=== PATIENT | male | born 1955 | race American Indian/Alaskan Native ===

== ENCOUNTER 2021-04-29 06:02 | Observation (INO) | payer MEDICARE ==
--- NOTE | 2021-04-24 11:38 | Anesthesia Consultation ---
Anesthesia Consult and Med Hx Date of service: 04/29/21 - Airway Anesthetic Teeth Evaluation: Dentures (upper), Partials (lower) ROM Head & Neck: Adequate Mental/Hyoid Distance: Adequate Mallampati Class: Class I Intubation Access Assessment: Good - Pulmonary Exam CTA: Yes - Cardiac Exam Cardiac Exam: RRR - Pre-Operative Health Status ASA Pre-Surgery Classification: ASA2 Proposed Anesthetic Plan: General Nerve Block: TAP - Pulmonary Hx Smoking: No Hx Respiratory Symptoms: No Hx Sleep Apnea: No (SAMUEL PRE SCREEN HIGH RISK) - Cardiovascular System Hx Hypertension: Yes Hx Heart Attack/AMI: No Hx Percutaneous Transluminal Coronary Angioplasty (PTCA): No - Central Nervous System CVA: No Hx Back Pain: Yes - Endocrine Hx Renal Disease: No Hx Liver Disease: No Hx Insulin Dependent Diabetes: No Hx Non-Insulin Dependent Diabetes: No Hx Thyroid Disease: No - Other Systems Hx Cancer: Yes (prostate ca) - Additional Comments Anesthesia Medical History Comments: No prior GA. No FHx anesthetic complications.
[2021-04-24 11:41] LABS: Mean Corpuscular HGB Conc 36 % (32-34); Mean Corpuscular Volume 85 fl (84-94); Platelet Count 189 K/mm3 (140-440); Red Blood Count 4.76 M/mm3 (3.65-5.03)
[2021-04-24 11:42] LABS: Alanine Aminotransferase 12 units/L (7-56); Albumin 4.1 g/dL (3.9-5); BUN/Creatinine Ratio 8; Blood Urea Nitrogen 10 mg/dL (9-20); Calcium 8.7 mg/dL (8.4-10.2); Hematocrit 40.5 % (35.5-45.6); Hemoglobin 14.7 gm/dl (11.8-15.2); Hemolysis Index 3
[~2021-04-29 06:02] MED LIST: ACETAMINOPHEN 500 MG TAB PO SCH; CELECOXIB 200 MG CAP PO NR; GABAPENTIN 300 MG CAP PO NR; LACTATED RINGERS 1,000 ML IV SCH; MIDAZOLAM 2 MG/2 ML INJ IV NR; fentaNYL 100 MCG/2 ML INJ IV PRN
[2021-04-29] MEDS ORDERED: BACTERIOSTATIC SODIUM CHLORIDE 0.9% 30 ML VIAL INFILTRATI ONE (06:43)
[2021-04-29] MEDS ORDERED: ceFAZolin/Water 2 GM/20 ML 2 GM/20 ML SYRINGE IV ONE (07:03)
[2021-04-29] MEDS ORDERED: CITRIC ACID-SOD CITRATE 500 ML IV ONE (07:20)
[2021-04-29] MEDS ORDERED: CALCIUM CHLORIDE 1,000 MG/10 ML SYRINGE IV ONE ×2 (07:20→08:47)
[2021-04-29] MEDS ORDERED: BUPIVACAINE/PF (0.5%) 5 MG/1 ML 30 ML VIAL INFILTRATI ONE (07:20)
[2021-04-29] MEDS ORDERED: THROMBIN (RECOMBINANT) 5,000 UNIT VIAL TP ONE ×2 (07:21→08:47)
[2021-04-29] MEDS ORDERED: METHYLENE BLUE 50 MG/10 ML AMP ONE (07:21)
[2021-04-29] MEDS ORDERED: ONDANSETRON 4 MG/2 ML INJ IV PRN (07:35)
[2021-04-29] MEDS ORDERED: HYDROmorphone 1 MG/1 ML INJ IV PRN ×2 (07:35)
--- NOTE | 2021-04-29 07:35 | Anesthesia Day of Surgery ---
Anesthesia Day of Surgery - Day of Surgery Patient Examined: Yes Patient H&P Reviewed: Yes Patient is NPO: Yes
[2021-04-29] MEDS ORDERED: dexAMETHasone 4 MG/ML VIAL ONE (07:37)
[2021-04-29] MEDS ORDERED: BUPIVACAINE-EPINEPHRINE/PF 0.25%-1:200,000 (30 ML) VIAL INFILTRATI ONE (07:37)
[2021-04-29] MEDS ORDERED: BUPIVACAINE/PF (0.25%) 2.5 MG/ML 30 ML VIAL INFILTRATI ONE (07:37)
[2021-04-29] MEDS ORDERED: dexAMETHasone 20 MG/5 ML VIAL ONE (07:45)
[2021-04-29] MEDS ORDERED: ROCURONIUM 50 MG/5 ML INJ IV ONE ×2 (07:45→09:48)
[2021-04-29] MEDS ORDERED: LIDOCAINE MPF (2%) 20 MG/1 ML VIAL 5 ML ONE (07:45)
[2021-04-29] MEDS ORDERED: propofoL 200 MG/20 ML VIAL IV ONE (07:46)
[2021-04-29] MEDS ORDERED: fentaNYL 100 MCG/2 ML INJ ONE (07:46)
[2021-04-29] MEDS ORDERED: ceFAZolin/Water 2 GM/20 ML 2 GM/20 ML SYRINGE IV NR (08:00)
[2021-04-29] MEDS ORDERED: CITRIC ACID-SOD CITRATE SOLN 500 ML IV SOLN IV ONE (08:47)
[2021-04-29] MEDS ORDERED: SODIUM CHLORIDE 0.9% IRRIG SOLN 2000 ML IR ONE (08:47)
[2021-04-29] MEDS ORDERED: WATER FOR IRRIG STERILE 1,500 ML BOTTLE IR ONE (08:47)
[2021-04-29] MEDS ORDERED: HYDROmorphone 1 MG/1 ML INJ ONE (08:50)
[2021-04-29] MEDS ORDERED: NEOSTIGMINE 10MG/10 ML INJ MDV ONE (10:56)
[2021-04-29] MEDS ORDERED: GLYCOPYRROLATE 0.4 MG/2 ML INJ ONE (10:56)
--- NOTE | 2021-04-29 10:58 | Short Stay Summary ---
Short Stay Documentation Date of service: 04/29/21 - History H&P: obtained from office - Allergies and Medications Current Medications: Allergies No Known Allergies Allergy (Verified 04/19/21 16:46) Home Medications Medication Instructions Recorded Confirmed Last Taken Type Cetirizine HCl 1 tab PO DAILY 04/19/21 04/19/21 04/28/21 History Lisinopril/Hydrochlorothiazide 10 mg PO DAILY 04/19/21 04/19/21 04/28/21 History Sildenafil 1 tab PO PRN PRN 04/19/21 04/29/21 04/26/21 History Active Medications Acetaminophen (Acetaminophen 500 Mg Tab) 1,000 mg PO PREOP ALEXIS Stop: 04/29/21 20:00 Celecoxib (Celecoxib 200 Mg Cap) 200 mg PO PREOP NR Stop: 04/29/21 20:00 Fentanyl (Fentanyl 100 Mcg/2 Ml Inj) 100 mcg IV ONCE PRN PRN Reason: sedation for nerve block Stop: 04/29/21 20:00 Last Admin: 04/29/21 07:43 Dose: 100 mcg Gabapentin (Gabapentin 300 Mg Cap) 300 mg PO PREOP NR Stop: 04/29/21 20:00 Hydromorphone HCl (Hydromorphone 1 Mg/1 Ml Inj) 0.25 mg IV Q10MIN PRN PRN Reason: Pain, Moderate (4-6) Stop: 04/29/21 20:00 Hydromorphone HCl (Hydromorphone 1 Mg/1 Ml Inj) 0.5 mg IV Q10MIN PRN PRN Reason: Pain , Severe (7-10) Stop: 04/29/21 20:00 Lactated Ringer's (Lactated Ringers) 1,000 mls @ 100 mls/hr IV DIRECT ALEXIS Stop: 04/29/21 23:59 Last Admin: 04/29/21 07:30 Dose: 100 mls/hr Midazolam HCl (Midazolam 2 Mg/2 Ml Inj) 2 mg IV PREOP NR Stop: 04/29/21 20:00 Last Admin: 04/29/21 07:43 Dose: 2 mg - Brief post op/procedure progress note Date of procedure: 04/29/21 Pre-op diagnosis: prostate cancer Post-op diagnosis: same Procedure: robotic prostatectomy, stem cell implant Anesthesia: GETA Surgeon: JENNIE ARGUETA Estimated blood loss: other (200c) Specimen disposition: to lab Condition: stable - Hospital course Hospital course: pt has bactrim & norco post op info on chart looks good in bed [facility] removed home with raymond - Disposition Condition at discharge: Stable Short Stay Discharge Plan Follow up with: MINERVA LANDA MD [Primary Care Provider] - 7 Days
[2021-04-29] MEDS ORDERED: ZOLPIDEM 5 MG TAB PO PRN (11:03)
[2021-04-29] MEDS ORDERED: MORPHINE 4 MG/1 ML INJ IV PRN (11:03)
[2021-04-29] MEDS ORDERED: ACETAMINOPHEN 325 MG TAB PO PRN (11:03)
[2021-04-29] MEDS ORDERED: NALOXONE 0.4 MG/1 ML INJ IV PRN (11:03)
[2021-04-29] MEDS ORDERED: diphenhydrAMINE 25 MG CAP PO PRN (11:03)
[2021-04-29] MEDS ORDERED: LACTATED RINGERS 1,000 ML IV SCH (11:15)
[2021-04-29] MEDS ORDERED: LACTATED RINGERS 1,000 ML ONE (11:41)
--- NOTE | 2021-04-29 12:00 | Operative Report ---
DATE OF SURGERY: 04/29/2021 PREOPERATIVE DIAGNOSIS: Prostate cancer. POSTOPERATIVE DIAGNOSIS: Prostate cancer. PROCEDURES: Robotic-assisted laparoscopic prostatectomy, bladder neck suspension, stem cell implant. SURGEON: Jose Miguel Roth MD ANESTHESIA: General. ESTIMATED BLOOD LOSS: Minimal. FLUIDS: Crystalloid. COMPLICATIONS: No complications. DIRECTOR OF OPERATIONS HOME HEALTH: Alberta Dumont. DRAINS: Awais-Wilson drain x 1. INDICATIONS: This patient is a 66-year-old gentleman seen in the office for an elevated PSA of 5. He underwent transrectal ultrasound and biopsy of prostate, was found to have adenocarcinoma of the prostate. Bone scan, CT scan was unremarkable except for BPH and degenerative changes. Discussed options including stem cells. He agreed to proceed with surgical intervention. Risks, benefits, complications were explained. DESCRIPTION OF PROCEDURE: The patient was taken to the operative suite, placed in a supine position. After adequate general anesthesia, he was then placed in a modified dorsal lithotomy position, prepped and draped in a sterile fashion. Lopes catheter was placed on the operative field. A 1 cm supraumbilical incision was made. Towel clips were placed. Veress needle was inserted. A drop test was negative. Opening pressure was 1 cm of water. Insufflation of the abdomen to 15 cm of water was performed without difficulty. The patient had a narrow pelvis. A 15 cm cephalad to pubic symphysis was marked, 9 cm lateral and additional 9 cm lateral was marked to allow placement of robotic ports. A 10 mm helper port and a 5 mm helper port was placed on the right side. A 0-degree lens was placed in the supraumbilical incision without difficulty. The rest of the ports were placed under direct vision. No signs of metastasis or intra-abdominal injury could be appreciated. The patient was placed in exaggerated dorsal lithotomy position. Robotic cart was docked between the legs. I went to the console. Attention was taken to the posterior aspect of the bladder and prostate. Second arch was scored exposing the seminal vesicles and vas deferens, they were dissected out. Vas deferens was transected bilaterally. Dissection was taken to the apex of the prostate. Next, attention was taken to the anterior abdominal wall laterally. Lateral umbilical ligament was scored and then across the midline to allow the bladder to drop. Dorsal vein complex was controlled with a 60 mm vascular stapler. The endopelvic fascia was opened bilaterally, dissected to the bladder neck. Part of the neurovascular bundle could be appreciated bilaterally and attempts to spare structures were performed; however, with tedious bleeding, a 60 mm stapler was placed to control bleeding on the lateral pedicles. The bladder neck was scored exposing the Lopes. It was deflated and retractor was used for anterior traction. Posterior bladder neck was dissected free exposing the seminal vesicles and vas deferens. They were pulled anteriorly. As I mentioned earlier, the 60 mm vascular stapler had to be used for control of the pedicles. Copious irrigation was performed. Adequate hemostasis was achieved. Dissection to the apex of the prostate was performed. Distal urethra was transected and the prostate was placed in the EndoCatch bag. The bladder neck was reconstructed at the 7 o'clock and 5 o'clock positions using 2-0 Vicryl in interrupted fashion to accommodate an 18-Belgian Lopes catheter. Double-armed V-Loc stitch was placed at the 6 o'clock position. The bladder neck corresponding aspect of the urethra running stitch was placed. Prior to that, a 2 x 2 cm stem cell graft was placed over the rectum and in the area of the neurovascular bundle. The stem cells were incorporated into the anastomotic stitch at the urethra. Lopes catheter was placed. A new 18-Belgian Lopes catheter was placed. The V-Loc stitch was cinched down. Lopes was inflated with 15 mL of water irrigation, no clots. Bladder neck suspension placing the V-Loc stitch in the pubic bone (periosteum) bilaterally. Copious irrigation was performed. Adequate hemostasis was achieved. Platelet rich plasma and platelet poor plasma was injected around the urethra as well as a platelet membrane. A 10 mm Awais-Wilson drain was brought out through the left sided port. Robot was undocked. The patient was placed in a supine position. Supraumbilical incision was extended to allow removal of the prostate. Supraumbilical incision was closed with 0 Vicryl in a [id number] fashion. The rest of the incisions were closed with 3-0 Vicryl in an interrupted fashion. Awais-Wilson drain was secured with 2-0 silk. Lopes catheter sideport was folded over, tied with 0 silk in interrupted fashion. Alberta Dumont was present at the bedside to assist throughout the case. TID: [id number] RECEIPT: [id number] JENSEN/IDALIA
--- NOTE | 2021-04-29 12:22 | Consultation ---
History of Present Illness - Reason for Consult Consult date: 04/29/21 Medical management Requesting physician: JENNIE ARGUETA - History of Present Illness Patient is s/p robotic prostatectomy for prostate cancer. Postop patient is doing well. On the phone talking with his family. No shortness of breath etc. Past History Past Medical History: hypertension Past Surgical History: Other (Robotic prostatectomy) Social history: lives with family, full code Family history: hypertension Medications and Allergies Allergies Allergy/AdvReac Type Severity Reaction Status Date / Time No Known Allergies Allergy Verified 04/19/21 16:46 Home Medications Medication Instructions Recorded Confirmed Last Taken Type Cetirizine HCl 1 tab PO DAILY 04/19/21 04/19/21 04/28/21 History Lisinopril/Hydrochlorothiazide 10 mg PO DAILY 04/19/21 04/19/21 04/28/21 History Sildenafil 1 tab PO PRN PRN 04/19/21 04/29/21 04/26/21 History Active Meds: Active Medications Acetaminophen (Acetaminophen 500 Mg Tab) 1,000 mg PO PREOP ALEXIS Stop: 04/29/21 20:00 Acetaminophen (Acetaminophen 325 Mg Tab) 650 mg PO Q4H PRN PRN Reason: Pain, Mild (1-3)/Fever > 100.5 Hydrocodone Bitart/Acetaminophen (Hydrocodone/Acetaminophen 5-325 Mg Tab) 2 each PO Q4H PRN PRN Reason: Pain, Moderate (4-6) Celecoxib (Celecoxib 200 Mg Cap) 200 mg PO PREOP NR Stop: 04/29/21 20:00 Cetirizine HCl (Cetirizine 10 Mg Tab) 10 mg PO DAILY ALEXIS Diphenhydramine HCl (Diphenhydramine 25 Mg Cap) 25 mg PO Q6H PRN PRN Reason: Itching Fentanyl (Fentanyl 100 Mcg/2 Ml Inj) 100 mcg IV ONCE PRN PRN Reason: sedation for nerve block Stop: 04/29/21 20:00 Last Admin: 04/29/21 07:43 Dose: 100 mcg Gabapentin (Gabapentin 300 Mg Cap) 300 mg PO PREOP NR Stop: 04/29/21 20:00 Hydrochlorothiazide (Hydrochlorothiazide 12.5 Mg Cap) 12.5 mg PO QDAY ALEXIS Hydromorphone HCl (Hydromorphone 1 Mg/1 Ml Inj) 0.25 mg IV Q10MIN PRN PRN Reason: Pain, Moderate (4-6) Stop: 04/29/21 20:00 Hydromorphone HCl (Hydromorphone 1 Mg/1 Ml Inj) 0.5 mg IV Q10MIN PRN PRN Reason: Pain , Severe (7-10) Stop: 04/29/21 20:00 Lactated Ringer's (Lactated Ringers) 1,000 mls @ 100 mls/hr IV DIRECT ALEXIS Stop: 04/29/21 23:59 Last Admin: 04/29/21 07:30 Dose: 100 mls/hr Lactated Ringer's (Lactated Ringers) 1,000 mls @ 100 mls/hr IV DIRECT ALEXIS Cefazolin Sodium (Ancef/Ns 1 Gm/50 Ml) 1 gm in 50 mls @ 100 mls/hr IV Q8H ALEXIS; Protocol Stop: 04/30/21 01:29 Lisinopril (Lisinopril 10 Mg Tab) 10 mg PO QDAY ALEXIS Midazolam HCl (Midazolam 2 Mg/2 Ml Inj) 2 mg IV PREOP NR Stop: 04/29/21 20:00 Last Admin: 04/29/21 07:43 Dose: 2 mg Morphine Sulfate (Morphine 4 Mg/1 Ml Inj) 4 mg IV Q4H PRN PRN Reason: Pain , Severe (7-10) Naloxone HCl (Naloxone 0.4 Mg/1 Ml Inj) 0.1 mg IV Q2MIN PRN PRN Reason: Res Rate </= 8 or 02 SAT < 92% Zolpidem Tartrate (Zolpidem 5 Mg Tab) 5 mg PO QHS PRN PRN Reason: Sleep Review of Systems All systems: negative Exam - Constitutional Vitals: Temp Pulse Resp BP Pulse Ox 99.2 F 88 14 126/68 99 04/29/21 06:26 04/29/21 07:59 04/29/21 07:59 04/29/21 07:59 04/29/21 07:59 General appearance: Present: no acute distress, well-nourished - EENT Eyes: Present: PERRL ENT: hearing intact, clear oral mucosa - Neck Neck: Present: supple, normal ROM - Respiratory Respiratory effort: normal Respiratory: bilateral: CTA - Cardiovascular Heart Sounds: Present: S1 & S2. Absent: rub, click - Extremities Extremities: pulses symmetrical, No edema Peripheral Pulses: within normal limits - Abdominal General gastrointestinal: Present: soft, non-tender, non-distended, normal bowel sounds Male genitourinary: Present: normal - Integumentary Integumentary: Present: clear, warm, dry - Musculoskeletal Musculoskeletal: gait normal, strength equal bilaterally - Psychiatric Psychiatric: appropriate mood/affect, intact judgment & insight - Neurologic Neurologic: CNII-XII intact, moves all extremities Results - Labs CBC & Chem 7: 04/24/21 00:01 04/24/21 00:01 Assessment and Plan - Patient Problems (1) HTN (hypertension) Current Visit: Yes Status: Chronic Qualifiers: Hypertension type: primary hypertension Qualified Code(s): I10 - Essential (primary) hypertension Plan to address problem: Continue antihypertensives and adjust medications as necessary (2) S/P robot-assisted surgical procedure Current Visit: Yes Status: Acute Plan to address problem: Postop patient doing well No complications (3) DVT prophylaxis Current Visit: Yes Status: Acute Plan to address problem: On SCDs and GI prophylaxis (4) Advance care planning Current Visit: Yes Status: Acute Plan to address problem: Disease education conducted, care plan discussed, diagnosis discussed, prognosis discussed. Patient is full code. Patient acknowledges understanding and agreement with care plan. +30 minutes.
[2021-04-29] MEDS: ceFAZolin/NS 1 GM/50 ML 1 GM/50 ML BAG IV SCH (17:43)
--- NOTE | 2021-04-29 18:47 | Post Anesthesia Evaluation ---
- Post Anesthesia Evaluation Patient Participated: Yes Airway Patent: Yes Stable Respiratory Function: Yes Nausea/Vomiting: No Temp > 96.8F: Yes Pain Manageable: Yes Adequeate Hydration: Yes Anesthesia Complications: No Block Receding Appropriately: No Patient on Ventilator: No
[2021-04-30] MEDS: HYDROcodone/ACETAMINOPHEN 5-325 MG TAB PO PRN ×2 (02:32→06:04)
[2021-04-30] MEDS: ceFAZolin/NS 1 GM/50 ML 1 GM/50 ML BAG IV SCH (02:33)
[2021-04-30] MEDS ORDERED: hydroCHLOROthiazide 12.5 MG CAP PO SCH (10:00)
[2021-04-30] MEDS ORDERED: NON-FORMULARY EACH (Lisinopril/Hydrochlorothiazide 10 MG) PO SCH (10:00)
[2021-04-30] MEDS ORDERED: CETIRIZINE 10 MG TAB PO SCH (10:00)
[2021-04-30] MEDS ORDERED: CETIRIZINE HCL PO SCH (10:00)
[2021-04-30] MEDS ORDERED: LISINOPRIL 10 MG TAB PO SCH (10:00)
--- NOTE | 2021-04-30 12:25 | Event Note ---
Date: 04/30/21 Patient will be discharging home today. Patient can continue home antihypertensives. Thank you for this interesting consult. Medicine will be s igning off.
[2021-04-30 13:00] VITALS: BP 132/64
== END 2021-04-30 13:30 | disposition home or self-care (01) ==
LOC: OR 06:02 → EDSTATUS 08:00 → 3A 11:03
PROVIDERS: ADMIT Urology; ATTEND Urology
DX: C61 Malignant neoplasm of prostate (principal); Z20.822 Contact with and (suspected) exposure to COVID-19; I10 Essential (primary) hypertension; R97.20 Elevated prostate specific antigen [PSA]; Z79.899 Other long term (current) drug therapy; Z98.890 Other specified postprocedural states
CPT/HCPCS: 36415; 55866; 64488; 80053; 85027; 86850; 86900; 86901; 88309; 96365; 96366; 97161; G0378; J0690; J1100; J1170; J1815; J2250; J2405; J2704; J2710; J3010; J3490; J7120; Q4140; U0003; 64450; Q9968